=== PATIENT | male | born 1965 | race Caucasian/White ===

== ENCOUNTER → 2016-08-18 | Outpatient (REF) | payer MEDICARE, MEDICAID ==
[2016-08-18 13:39] LABS: BASO % 0.3 % (0.0-1.0); EOS # 0.2 K/mm3 (0.0-0.50); EOS % 1.8 % (0.0-3.0); LARGE UNSTAINED CELL # 0.2 K/mm3 (0.0-0.4); LARGE UNSTAINED CELL % 1.5 % (0.0-4.0); LYMPH # 4.5 K/mm3 (1.5-4.5); LYMPH % 39.5 % (24.0-44.0); MEAN CORPUSCULAR HEMOGLOBIN 33.3 pg (27.0-33.0); MEAN CORPUSCULAR HGB CONC 33.4 g/dl (32.0-36.5); MEAN CORPUSCULAR VOLUME 99.9 fl (80.0-96.0); MONO % 9.3 % (0.0-5.0); NEUTROPHILS # 5.2 K/mm3 (1.8-7.7); NEUTROPHILS % 47.6 % (36.0-66.0); PLATELET COUNT, AUTOMATED 205 k/mm3 (150-450); RED CELL DISTRIBUTION WIDTH 13.7 % (11.5-14.5)
[2016-08-18 14:04] LABS: ALBUMIN 3.7 GM/DL (3.2-5.2); ALBUMIN/GLOBULIN RATIO 1.12 (1.00-1.93); ALKALINE PHOSPHATASE 39 U/L (45-117); ALT/SGPT 12 U/L (12-78); ANION GAP 9 MEQ/L (8-16); AST/SGOT 17 U/L (15-37); BILIRUBIN,TOTAL 0.3 MG/DL (0.2-1.0); BLOOD UREA NITROGEN 6 MG/DL (7-18); CALCIUM LEVEL 9.1 MG/DL (8.5-10.1); CARBON DIOXIDE LEVEL 30 MEQ/L (21-32); CHLORIDE LEVEL 100 MEQ/L (98-107); CREATININE FOR GFR 0.54 MG/DL (0.70-1.30); GLOMERULAR FILTRATION RATE > 60.0 (>56); GLUCOSE, FASTING 69 MG/DL (70-105); POTASSIUM SERUM 4.5 MEQ/L (3.5-5.1); SODIUM LEVEL 139 MEQ/L (136-145)
== END ==
LOC: M LABNEURO 12:45
PROVIDERS: ATTEND Physician Assistant Medical
DX: G40.909 Epilepsy, unspecified, not intractable, without status epilepticus (principal); R63.4 Abnormal weight loss; R27.0 Ataxia, unspecified; H55.00 Unspecified nystagmus